=== PATIENT | male | born 1950 | race Caucasian/White ===

== ENCOUNTER 2019-11-28 11:34 | Outpatient (CLI) | payer MEDICARE, OTHER, SELFPAY ==
--- NOTE | 2019-11-28 | XR_ITS ---
WS: [id number] XR abdomen min 2V [id number] REASON FOR EXAM: CHANGE IN BOWEL FUNCTION FINDINGS: Fecal stasis throughout the colon are noted. No air-fluid levels seen. No free air under the diaphragms. No air-fluid levels seen. Degenerate changes of the lumbar spine. No definite calcifications in the region of the kidneys. XR/XR abdomen min 2V [id number] IMPRESSION: Nonspecific gas and fecal stasis.
== END 2019-11-28 11:35 | disposition home or self-care (01) ==
LOC: RADOUTREAD 12-01 11:05
PROVIDERS: Family Provider Family Medicine; PCP Family Medicine; Visit Provider Family Medicine
DX: Z01.89 Encounter for other specified special examinations (principal)

== ENCOUNTER → 2024-01-08 08:27 | Outpatient (BNVA) | payer MEDICARE, OTHER, SELFPAY | PROVIDERS: PCP Family Medicine; Visit Provider Podiatrist Foot & Ankle Surgery | DX: M20.41 Other hammer toe(s) (acquired), right foot; E11.9 Type 2 diabetes mellitus without complications | CPT/HCPCS: 73630; 99203 ==

== ENCOUNTER → 2024-07-22 12:43 | Outpatient (BNVA) | payer MEDICARE, OTHER, SELFPAY | PROVIDERS: PCP Family Medicine; Referring Provider Family Medicine; Visit Provider Dermatology | DX: L82.1 Other seborrheic keratosis (principal); L72.0 Epidermal cyst; D18.01 Hemangioma of skin and subcutaneous tissue; L57.0 Actinic keratosis; Z85.828 Personal history of other malignant neoplasm of skin; Z85.820 Personal history of malignant melanoma of skin | CPT/HCPCS: 17000; 99203 ==

== ENCOUNTER → 2025-03-31 07:47 | Outpatient (BNVA) | payer MEDICARE, OTHER, SELFPAY | PROVIDERS: PCP Family Medicine; Visit Provider Podiatrist Foot & Ankle Surgery | DX: M79.671 Pain in right foot (principal); M20.41 Other hammer toe(s) (acquired), right foot; E11.69 Type 2 diabetes mellitus with other specified complication; M21.41 Flat foot [pes planus] (acquired), right foot; M19.071 Primary osteoarthritis, right ankle and foot; M77.41 Metatarsalgia, right foot | CPT/HCPCS: 73630; 99214 ==

== ENCOUNTER 2025-05-21 11:53 | Outpatient (CLI) | payer MEDICARE, OTHER, SELFPAY | END 2025-05-21 11:54 | disposition home or self-care (01) | LOC: SPT 11:54 | PROVIDERS: PCP Family Medicine; Visit Provider Podiatrist Foot & Ankle Surgery | DX: Z46.89 Encounter for fitting and adjustment of other specified devices (principal); Q66.70 Congenital pes cavus, unspecified foot | CPT/HCPCS: L3030 ==

== ENCOUNTER 2025-06-11 09:34 | Outpatient (CLI) | payer MEDICARE, OTHER, SELFPAY | END 2025-06-11 09:35 | disposition home or self-care (01) | LOC: SPT 09:35 | PROVIDERS: PCP Family Medicine; Visit Provider Podiatrist Foot & Ankle Surgery | DX: Z46.89 Encounter for fitting and adjustment of other specified devices (principal); S86.091D Other specified injury of right Achilles tendon, subsequent encounter; X58.XXXD Exposure to other specified factors, subsequent encounter | CPT/HCPCS: L4361 ==

== ENCOUNTER 2025-06-29 09:27 | Outpatient (CLI) | payer MEDICARE, OTHER, SELFPAY ==
--- NOTE | 2025-06-29 09:30 | MR_ITS ---
WS: [id number] EXAMINATION: MR ankle RT wo con* [id number] ORDER DATE: 06/29/2025 9:30 AM COMPARISON: None. HISTORY: ruptured tendon, right CONTRAST: None. TECHNIQUE: Axial proton density fat sat, axial T1, sagittal proton density, sagittal STIR, coronal T2 fat sat, and coronal T1 sequences performed. After contrast, axial T1 fat sat, coronal T1 fat sat, and sagittal T1 fat sat were performed. FINDINGS: High-grade tear/rupture with diffuse edema tibialis anterior. Associated tendon retraction. Additional extensor compartment tendons appear intact. Distal Achilles appears intact. Tenosynovitis involving the peroneal tendons. Flexor compartment tendons appear intact. ATF appears intact. Normal bone marrow signal in the medial and lateral malleolus. Deltoid ligament appears intact. Normal bone marrow signal in the talar dome. Normal plantar aponeurosis. MR/MR ankle RT wo con* [id number] IMPRESSION: 1. High-grade complete tear/rupture of the tibialis anterior with tendon retra ction. Associated edema and T2 signal abnormality 2. Tenosynovitis involving the peroneal tendons. 3. No other acute findings.
== END 2025-06-29 09:28 | disposition home or self-care (01) ==
PROVIDERS: PCP Family Medicine; Referring Provider Orthopaedic Surgery; Visit Provider Podiatrist Foot & Ankle Surgery
DX: M66.861 Spontaneous rupture of other tendons, right lower leg (principal); M65.98 Unspecified synovitis and tenosynovitis, other site
CPT/HCPCS: 73721

== ENCOUNTER 2025-07-09 05:52 | Day surgery (SDC) | payer MEDICARE, OTHER, SELFPAY ==
[2025-07-09] VITALS (11 sets, daily range): BP systolic 94–128; BP diastolic 52–84; PULSE 54–61; RESP 16–18; TEMP 36.2–36.6; O2SAT 90–96; BMI 30.8
--- NOTE | 2025-07-09 06:09 | ANES.PREANE2 ---
Pre-Anesthetic Assessment Height/Weight: Height 6 ft 2 in Preop Diagnosis: Right tibialis anterior tendon rupture Operation Date: 07/09/25 07:00 Proposed Procedures p Repair right tibialis anterior tendon with graft(Right) - Ryan Byrne DPM Was Beta Héctor taken within 24 hours: Yes Was Clonidine taken within 24 hours: N/A Social No alcohol and No tobacco Exam alert, oriented x 3, clear to auscultation bilaterally and regular rate & rhythm Airway Submandibular: within normal limits Cervical ROM: within normal limits Mallampati: Class III Comments: Comments: Missing few teeth on the bottom, denies any loose Anesthetic Plan ASA status: 3 Anesthesia: General and Regional (specify below) Other: no prior issues with anesthesia. Patient did have blood clot/PE after bilateral knee replacements 15 years ago NPO since yesterday evening History of hypertension on chlorthalidone, losartan, nifedipine, carvedilol-all taken yesterday GERD, on Pepcid MIRIAN, CPAP nightly Patient follows with Nacho Anthony, labs 2 weeks ago which he states were normal. BMP was already drawn but we do not have to wait METs greater than 4 Plan for general anesthesia with peripheral nerve block Medications/Allergies Home Medications ?Medication ?Instructions ?Recorded ?Confirmed ?Last Taken ?Type carvedilol 6.25 mg tablet 6.25 mg PO BID 07/26/22 07/08/25 07/08/25 History chlorthalidone 25 mg tablet 25 mg PO DAILY 07/26/22 07/08/25 07/08/25 History cholecalciferol (vitamin D3) 50 50 mcg PO DAILY 07/26/22 07/08/25 07/08/25 History mcg (2,000 unit) tablet famotidine 40 mg tablet 40 mg PO DAILY 07/26/22 07/08/25 07/08/25 History losartan 100 mg tablet 100 mg PO DAILY 07/26/22 07/08/25 07/08/25 History pravastatin 80 mg tablet 80 mg PO DAILY #90 tabs 06/11/23 07/08/25 07/08/25 Rx sildenafil 25 mg tablet 25 mg PO DAILY PRN sexual activity 06/11/23 07/08/25 Unknown Rx #90 tabs Sole Supports #1 ea 03/31/25 06/29/25 Unknown Rx hydroxychloroquine 100 mg tablet 100 mg PO BID 07/07/08/25 07/08/25 History Cam boot #1 ea 06/11/25 06/29/25 Unknown Rx empagliflozin 25 mg tablet 25 mg PO DAILY 07/08/25 07/08/25 07/08/25 History (Jardiance) nifedipine 30 mg tablet,extended 30 mg PO DAILY 07/08/25 07/08/25 07/08/25 History release 24 hr (Procardia XL) hydrocodone 5 mg-acetaminophen 325 1 tab PO Q6H PRN pain #28 tabs 07/09/25 Unknown Rx mg tablet Allergies Allergy/AdvReac Type Severity Reaction Status Date / Time No Known Allergies Allergy Verified 07/08/25 09:21 [facility] Anesthesia Medical History (Updated 07/03/25 @ 09:25 by Ryan Byrne DPM) Hyperlipidemia Family History Grandfather CAD (coronary artery disease) Social History Smoking and tobacco/nicotine status: never used tobacco/nicotine Alcohol intake: current Alcohol intake frequency: 0-2 Drinks per Day
--- NOTE | 2025-07-09 06:35 | W.PM.OPSUD ---
Surgery/Procedure H&P Update DATE OF PROCEDURE: July 09, 2025 DATE H&P PERFORMED: 06/29/25 H&P UPDATE INFORMATION: I have reviewed H&P completed within last 30 days, I have examined patient prior to procedure, No changes to prior documentation, H&P is in [facility] EMR on date indicated and Risks and benefits of the procedure reviewed PREOP DIAGNOSIS: Right tibialis anterior tendon rupture PLANNED PROCEDURE: Operation Date: 07/09/25 07:00 Proposed Procedures p Repair right tibialis anterior tendon with graft(Right) - Ryan Byrne DPM
[2025-07-09] MEDS: ceFAZolin 2,000 mg SDV 2000 MG IVP (06:54)
[2025-07-09 07:05] LABS: Anion Gap 18.5 (5-19); Blood Urea Nitrogen 24 mg/dL (8-23); Calcium 9.4 mg/dL (8.5-10.5); Carbon Dioxide 25 mmol/L (22-29); Chloride 101 mmol/L (98-107); Creatinine Clr Calc Pharmacy 61.7256; Glucose 155 mg/dL (65-115); Osmolality Calculated 299 mOsm/kg (285-295); Potassium 3.5 mmol/L (3.5-5.1); Sodium 141 mmol/L (136-145)
--- NOTE | 2025-07-09 07:16 | ANES.PROC ---
Anesthesia Procedures Procedure/Date: 07/09/25 Right popliteal nerve block and right adductor nerve block for postoperative pain control Nerve Block ^: Nerve Block 1: Main Anesthesia: general anesthesia Time Out Performed: Yes Consent: requested by attending/covering physician and from patient Laterality: Right Nerve block location: popliteal Anesthesia monitors applied: pulse oximetry, EKG, BP cuff and oxygen Nerve block position: supine Anesthetic Used: ropivicaine 0.5% Amount of anesthesia used (mL): 25 Ultrasound used to: recognize landmarks Nerve Stimulator Used?: Yes Interscalene/Femoral BLK: other needle (pjunk 4inch) Injection: neg aspiration of heme Patient Tolerated Procedure: well Complications: none Additional Comments: decadron 4mg added to block Nerve Block 2: Main Anesthesia: general anesthesia Time Out Performed: Yes Consent: requested by attending/covering physician and from patient Laterality: Right Nerve block location: adductor canal Anesthesia monitors applied: pulse oximetry, EKG, BP cuff and oxygen Nerve block position: supine Anesthetic Used: bupivacaine 0.5% Amount of anesthesia used (mL): 15 Ultrasound used to: recognize landmarks Nerve Stimulator Used?: Yes Interscalene/Femoral BLK: other needle (pjunk 4inch) Injection: neg aspiration of heme Patient Tolerated Procedure: well Complications: none
[2025-07-09] MEDS: fentaNYL 50 mcg/mL INJ 2mL IVP (08:47)
--- NOTE | 2025-07-09 08:58 | P.OP_ITS ---
Operative Report Date of procedure: July 09, 2025 Surgeon: Ryan Byrne DPM Procedure: Date of procedure: 07/09/2025 Pre-op diagnosis: Rupture right tibialis anterior tendon Post-op diagnosis: Same Post-op findings: Ruptured right tibialis anterior tendon with retraction Procedure done: Repair right tibialis anterior tendon with tendon allograft CPT 69212 Implants: Tibialis anterior tendon allograft with tenodesis screw [employer], Interfyl connective tissue matrix Specimens removed: None Surgeon: Dr. Ryan Byrne DPM Cigar Packer And Grader: Skip Estimated blood loss: 5 cc Tourniquet time: 72 minutes Complications: None Patient is a 75-year-old male that has a history of right tibialis anterior tendon rupture. The extent of rupture and retraction necessitates direct repair of tendon. Alternative options such as bracing were discussed with patient. Patient wishes to proceed with surgical intervention at this time. A lengthy discussion regarding the procedure, including risks and complications has been had with the patient and is noted in the recent clinic note. Written and verbal consent have been obtained. All patient questions have been answered to the patient?s satisfaction. No written or verbal guarantees have been given or implied. The patient has been NPO since midnight. The history has been reviewed and the history and physical is current. The signed consent was confirmed and placed in the patient chart. Patient imaging has been reviewed and is consistent with the diagnosis. Under mild sedation, the patient was brought into the operating room and placed on the table in the supine position. IV antibiotics were given by the anesthesia team as preoperative surgical prophylaxis. General sedation was then performed by the anesthesiateam. A popliteal block/adductor canal was performed by the anesthesia department. A pneumatic tourniquet was then placed about the right thigh. The operative extremity was then prepped and draped in the usual fashion. The extremity was then elevated and exsanguinated before the tourniquet was inflated to 325 mmHg. After inflation, the following procedure was then performed. Attention was directed to the right ankle where a 7 cm incision was made overl tatyana the course the tibialis anterior tendon on the anterior aspect of the right ankle. This was done using a #15 blade. Blunt dissection was carried down through subcutaneous and superficial fascia with care taken to preserve adjacent neurovascular structures. Dissection was carried down to the level of the extensor retinaculum. Palpable under the most proximal border of the extensor retinaculum was the tibialis anterior tendon. Incision was extended proximally to expose the tendon. This was freed from the extensor retinaculum and debrided of nonviable tissue at the distal stump of the rupture. This appeared to be a complete rupture from the insertion site of the medial cuneiform. It was determined that tendon allograft would be most appropriate to reattach the tibialis anterior anterior tendon. After removing the devitalized portion of the stump the kotlik anterior tibialis tendon was whipstitched using 2-0 FiberWire. The allograft tendon was then tenodesed to the kotlik tendon and passed through the extensor retinaculum to the appropriate anatomic position. The medial cuneiform was drilled in preparation for tenodesis. The allograft tendon was then pulled into the tenodesis drill hole of the medial cuneiform. Suture button was then fastened to the plantar aspect of the medial cuneiform and tension was applied to pull the tendon into the medial cuneiform. Good t ension on the tendon was noted with the ankle held at 90 degrees. Next a tenodesis screw from [employer] was inserted into the drill hole for permanent fixation of the tendon. Good tension was noted on the tendon. The site was then irrigated with copious amounts of sterile saline. Interfyl connective tissue matrix from [employer] was then injected along the tenodesis site. Attention was then directed to closure. Deep tissue was closed with 2-0 Vicryl followed by subcuticular closure with 3-0 Vicryl and skin closed with 3-0 nylon in horizontal mattress fashion. Site was then dressed with Xeroform, 4 x 4 gauze, Kerlix, Floyd. The patient tolerated the procedure well and without complication. Tourniquet was let down and good hyperemic response was noted to all digits of the right foot. The patient tolerated the procedure and anesthesia well and without complication. The patient was transported from the operating room to the recovery room with vital signs stable and vascular status intact to all digits of the right foot. The patient was given both written and verbal instructions to remain strict nonweightbearing to the operative extremity, to keep dressings/splint clean, dry and intact and to take pain medication as directed. The patient will follow-up in the outpatient setting at their scheduled appointment. The patient was discharged with my personal number and was inst ructed to call if any questions or issues should arise. They were discharged home once anesthesia criteria was met.
--- NOTE | 2025-07-09 08:58 | W.PM.BPON ---
Date of procedure: 07/09/2025 Surgeon name: Dr. Ryan Byrne D.P.M. Auto Painter Helper(s) name(s): Skip Procedure(s) performed: Repair right tibialis anterior tendon with tendon allograft Description of findings: Rupture of tibialis anterior tendon with retraction Estimated blood loss: 5 cc Tourniquet time: 72 minutes Specimen(s) removed: None Post-operative diagnosis: Right tibialis anterior tendon rupture
--- NOTE | 2025-07-09 10:06 | ANE.PACU2 ---
Inpatient post-anesthesia follow up: Airway intact: Yes Vital signs: Temperature 97.8 F Pulse Rate 54 Respiratory Rate 17 Blood Pressure 123/69 Pulse Oximetry 92 Oxygen Delivery Me thod Room Air Oxygen Flow Rate Fraction of Inspir ed Oxygen Hydration adequate: Yes Nausea and vomiting: No Pain level: 1 Mental status: Baseline
== END 2025-07-09 10:06 | disposition home or self-care (01) ==
PROVIDERS: Student in an Organized Health Care Education/Training Program; PCP Family Medicine; Visit Provider Podiatrist Foot & Ankle Surgery
PROC: (CPT 28222; principal; 2025-07-09 07:00)
DX: S86.201A Unspecified injury of muscle(s) and tendon(s) of anterior muscle group at lower leg level, right leg, initial encounter (principal); X58.XXXA Exposure to other specified factors, initial encounter; I10 Essential (primary) hypertension; K21.9 Gastro-esophageal reflux disease without esophagitis; G47.33 Obstructive sleep apnea (adult) (pediatric); Z99.89 Dependence on other enabling machines and devices; Z79.891 Long term (current) use of opiate analgesic; E78.5 Hyperlipidemia, unspecified
CPT/HCPCS: 28222; 64447; 64445; 36415; 76000; 80048; C1713; C1734; C1762; J0690; J1100; J2371; J2405; J2704; J3010; J3490; J7030; J9999

== ENCOUNTER → 2025-07-16 13:43 | Outpatient (BNVA) | payer MEDICARE, OTHER, SELFPAY | PROVIDERS: PCP Family Medicine; Visit Provider Podiatrist Foot & Ankle Surgery | DX: E11.9 Type 2 diabetes mellitus without complications (principal); S86.211A Strain of muscle(s) and tendon(s) of anterior muscle group at lower leg level, right leg, initial encounter; X58.XXXA Exposure to other specified factors, initial encounter | CPT/HCPCS: 99024 ==

== ENCOUNTER → 2025-07-27 13:50 | Outpatient (BNVA) | payer MEDICARE, OTHER, SELFPAY | PROVIDERS: PCP Family Medicine; Visit Provider Podiatrist Foot & Ankle Surgery | DX: S86.211A Strain of muscle(s) and tendon(s) of anterior muscle group at lower leg level, right leg, initial encounter (principal); X58.XXXA Exposure to other specified factors, initial encounter | CPT/HCPCS: 99024 ==

== ENCOUNTER → 2025-08-05 12:56 | Outpatient (BNVA) | payer MEDICARE, OTHER, SELFPAY | PROVIDERS: PCP Family Medicine; Visit Provider Podiatrist Foot & Ankle Surgery | DX: S86.211A Strain of muscle(s) and tendon(s) of anterior muscle group at lower leg level, right leg, initial encounter (principal); X58.XXXA Exposure to other specified factors, initial encounter; E11.69 Type 2 diabetes mellitus with other specified complication | CPT/HCPCS: 99024 ==

== ENCOUNTER → 2025-08-20 12:58 | Outpatient (BNVA) | payer MEDICARE, OTHER, SELFPAY | PROVIDERS: PCP Family Medicine; Visit Provider Podiatrist Foot & Ankle Surgery | DX: E11.9 Type 2 diabetes mellitus without complications (principal); S86.211A Strain of muscle(s) and tendon(s) of anterior muscle group at lower leg level, right leg, initial encounter; X58.XXXA Exposure to other specified factors, initial encounter | CPT/HCPCS: 99024 ==

== ENCOUNTER → 2025-09-03 12:36 | Outpatient (BNVA) | payer MEDICARE, OTHER, SELFPAY | PROVIDERS: PCP Family Medicine; Visit Provider Podiatrist Foot & Ankle Surgery | DX: E11.9 Type 2 diabetes mellitus without complications (principal); S86.211D Strain of muscle(s) and tendon(s) of anterior muscle group at lower leg level, right leg, subsequent encounter; X58.XXXD Exposure to other specified factors, subsequent encounter | CPT/HCPCS: 99024 ==